=== PATIENT | female | born 2000 | race Caucasian/White ===

== ENCOUNTER 2018-01-24 20:47 | Emergency (ER) | payer OTHER ==
[~2018-01-24] VITALS: Ht 162.6 cm; Wt 50.0 kg
[2018-01-24] MEDS ORDERED: DOXYCYCLINE 10100 MG PO (22:31)
[2018-01-24 22:42] VITALS: BP 126/91; PULSE 69; TEMP 97.9
== END 2018-01-24 22:45 | disposition home or self-care (01) ==
LOC: COL.ER 20:47
DX: J20.9 Acute bronchitis, unspecified (principal)

== ENCOUNTER → 2018-07-22 | Outpatient (CLI) | payer OTHER ==
[~2018-07-22] MED LIST: DOXYCYCLINE 10100 MG PO
== END ==
LOC: COL.LAB 16:39
DX: J02.9 Acute pharyngitis, unspecified (principal)